=== PATIENT | male | born 1970 | race Caucasian/White ===

== ENCOUNTER 2016-12-27 08:17 | Emergency (ER) | payer OTHER ==
[~2016-12-27] VITALS: Ht 185.4 cm; Wt 142.7 kg
[~2016-12-27 08:17] MED LIST: ALDACTONE25 MG PO; AMIODARONE HCL200 MG PO; APRESOLINE50 MG PO; ASPIRIN81 M2 PO; ATENOLOL50 MG PO; AVAPRO150 MG PO; AVAPRO300 MG PO; BYSTOLIC5 MG; CATAPRES0.2 MG PO; COUMADIN,JANTOV10 MG PO; DIOVAN160 MG PO; FLEXERIL10 MG PO; FUROSEMIDE40 MG PO; HYDROCHLOROTH12.5 M3 PO; METOPROLOL TAR100 MG PO; PANTOPRAZOLE SO40 MG PO; SANTYL30 GM PO; VICODIN,LORT1 TABLET PO; [UNRECOGNIZED DRUG - OTHER] TP
[2016-12-27 09:22] LABS: EOSINOPHIL (%) 1.6 % (0-5); EOSINOPHIL COUNT 0.1 K/uL (0-0.3); HEMATOCRIT 46.5 % (38.0-50.0); IMMATURE GRANULOCYTE (%) 0.2 % (0.0-0.7); IMMATURE GRANULOCYTE COUNT 0.2 K/uL; MCH 29.4 PG (29.0-34.0); MCHC 35.5 G/DL (30.0-36.0); MCV 82.7 FL (86-99); MEAN PLAT.VOLUME 10.9 uM^3 (9.0-12.4); MONOCYTE (%) 7.4 % (3-12); MONOCYTE COUNT 0.6 K/uL (0-0.8); NEUTROPHIL (%) 79.4 % (45-76); NEUTROPHIL COUNT 6.8 K/uL (1.8-6.4); PLATELET COUNT 152 K/uL (156-360); RBC DIS.WIDTH-CV 12.8 % (11.8-14.6); RBC DIS.WIDTH-SD 38.8 % (39-53); RED BLOOD COUNT 5.62 M/uL (4.00-5.50); WHITE BLOOD COUNT 8.6 K/uL (4.1-10.2)
[2016-12-27 09:31] LABS: PTT 29.4 (25-32)
[2016-12-27 09:35] LABS: CHLORIDE 107 mEq/L (99-109); POTASSIUM 3.8 mEq/L (3.7-5.4); SODIUM 140 mEq/L (136-147)
[2016-12-27 09:37] LABS: GLUCOSE 112 mg/dL (70-99)
[2016-12-27 09:38] LABS: ANION GAP 9 MEQ/L (2-14)
[2016-12-27 09:40] LABS: GFR ESTIMATE (CALCULATED) > 59 mL/min/
[2016-12-27 09:41] LABS: UREA NITROGEN (BUN) 21 mg/dL (9-23)
[2016-12-27 09:44] LABS: TROP-I INTERPRETATION NEGATIVE; TROPONIN-I 0.02 ng/mL (0.0-0.30)
[2016-12-27 12:04] LABS: TROP-I INTERPRETATION NEGATIVE; TROPONIN-I 0.02 ng/mL (0.0-0.30)
[2016-12-27 12:33] VITALS: BP 138/86
== END 2016-12-27 12:40 | disposition home or self-care (01) ==
LOC: EME 08:17
PROVIDERS: Emergency Medicine
DX: R07.89 Other chest pain (principal); I10 Essential (primary) hypertension; K21.9 Gastro-esophageal reflux disease without esophagitis; Z86.14 Personal history of Methicillin resistant Staphylococcus aureus infection; Z87.891 Personal history of nicotine dependence
CPT/HCPCS: 71010; 80048; 84484; 85025; 85610; 85730; 93005; 99281; 99284